=== PATIENT | male | born 1960 | race Caucasian/White ===

== ENCOUNTER → 2018-05-15 16:33 | Outpatient (CLI) | payer OTHER, SELFPAY ==
[2018-05-15 17:49] LABS: AST(SGOT) 15 U/L (15-37); Alanine Aminotransfer ALT/SGPT 43 U/L (16-61); Albumin, Serum 4.1 g/dL (3.2-5.0); Alkaline Phosphatase 61 U/L (45-117); Anion Gap 12 (5-15); BUN 24 mg/dL (7-18); BUN/Creat Ratio 23.8 RATIO (10-20); Bilirubin, Direct 0.08 mg/dL (0.00-0.30); Chloride 106 mmol/L (98-107); Cholesterol 129 mg/dL (200); Creatinine, Serum 1.01 mg/dL (0.70-1.30); EST Glomerular Filtration Rate 81 mL/min (>60); Est Glom Filt Rate - Afr Amer 98 mL/min (>60); Globulin 3.8 g/dL (2.2-4.2); Glucose 161 mg/dL (74-106); Hemoglobin A1c 6.8 % (4.2-6.3); High Density Lipoprotein 24 mg/dL; Potassium 4.2 mmol/L (3.5-5.1); Protein, Total 7.9 g/dL (6.4-8.2); Sodium Level 143 mmol/L (136-145); Triglycerides 418 mg/dL
[2018-05-15 18:02] LABS: Microalbumin:Creatinine Ratio 88.4 mg/g CRE (<30 mg/g CRE)
== END ==
PROVIDERS: Family Provider Family Medicine; PCP Family Medicine; Visit Provider Family Medicine
DX: E11.9 Type 2 diabetes mellitus without complications (principal)
CPT/HCPCS: 36415; 80048; 80061; 80076; 82043; 82570; 83036

== ENCOUNTER → 2019-01-06 | Outpatient (CLI) | payer OTHER, SELFPAY ==
[2019-01-06 08:31] LABS: AST(SGOT) 21 U/L (15-37); Alanine Aminotransfer ALT/SGPT 37 U/L (16-61); Albumin, Serum 4.2 g/dL (3.2-5.0); Alkaline Phosphatase 54 U/L (45-117); Anion Gap 5 (5-15); BUN 19 mg/dL (7-18); BUN/Creat Ratio 20.1 RATIO (10-20); Bilirubin, Direct 0.06 mg/dL (0.00-0.30); Calcium,Total 9.1 mg/dL (8.5-10.1); Chloride 109 mmol/L (98-107); Cholesterol 126 mg/dL (200); Creatinine, Serum 0.94 mg/dL (0.70-1.30); EST Glomerular Filtration Rate 88 mL/min (>60); Est Glom Filt Rate - Afr Amer 106 mL/min (>60); Globulin 3.6 g/dL (2.2-4.2); Glucose 173 mg/dL (74-106); High Density Lipoprotein 28 mg/dL; Potassium 4.4 mmol/L (3.5-5.1); Protein, Total 7.8 g/dL (6.4-8.2); Sodium Level 139 mmol/L (136-145); Triglycerides 233 mg/dL; Very Low Density Lipoprotein 47 mg/dL (5-40)
== END | disposition home or self-care (01) ==
PROVIDERS: Family Provider Family Medicine; PCP Family Medicine; Referring Provider Family Medicine; Visit Provider Family Medicine
DX: E11.9 Type 2 diabetes mellitus without complications (principal)
CPT/HCPCS: 36415; 80048; 80061; 80076

== ENCOUNTER → 2019-12-21 | Outpatient (CLI) | payer BC, SELFPAY ==
[2019-12-21 10:11] LABS: Glucose 255 mg/dL (74-106)
[2019-12-21 10:39] LABS: Hemoglobin A1c 9.9 % (4.2-6.3)
== END | disposition home or self-care (01) ==
PROVIDERS: PCP Family Medicine; Referring Provider Family Medicine; Visit Provider Family Medicine
DX: E11.9 Type 2 diabetes mellitus without complications (principal)
CPT/HCPCS: 36415; 82947; 83036

== ENCOUNTER → 2020-04-05 | Outpatient (CLI) | payer BC, SELFPAY ==
[2017-08-05 11:57] VITALS: BMI 30.4
[2020-04-05 09:02] LABS: Anion Gap 7 (5-15); BUN 25 mg/dL (7-18); BUN/Creat Ratio 26.6 RATIO (10-20); Chloride 104 mmol/L (98-107); Cholesterol 146 mg/dL (200); Creatinine, Serum 0.94 mg/dL (0.70-1.30); EST Glomerular Filtration Rate 87 mL/min (>60); Est Glom Filt Rate - Afr Amer 106 mL/min (>60); Glucose 261 mg/dL (74-106); High Density Lipoprotein 22 mg/dL; Sodium Level 138 mmol/L (136-145); Triglycerides 270 mg/dL; Very Low Density Lipoprotein 54 mg/dL (5-40)
== END | disposition home or self-care (01) ==
LOC: LAB 07:48
PROVIDERS: PCP Family Medicine; Referring Provider Family Medicine; Visit Provider Family Medicine
DX: E11.9 Type 2 diabetes mellitus without complications (principal)
CPT/HCPCS: 36415; 80048; 80061

== ENCOUNTER → 2022-07-27 | Outpatient (CLI) | payer BC, SELFPAY ==
[2022-07-27 10:27] LABS: Anion Gap 5 (5-15); BUN 20 mg/dL (7-18); BUN/Creat Ratio 27.1 RATIO (10-20); Calcium,Total 9.2 mg/dL (8.5-10.1); Chloride 108 mmol/L (98-107); Cholesterol 94 mg/dL (200); Creatinine, Serum 0.74 mg/dL (0.70-1.30); EST Glomerular Filtration Rate 115 mL/min (>60); Est Glom Filt Rate - Afr Amer 139 mL/min (>60); Glucose 112 mg/dL (74-106); High Density Lipoprotein 31 mg/dL; PSA,Total - Annual Screen 0.75 ng/mL (0.00-4.00); Potassium 4.2 mmol/L (3.5-5.1); Sodium Level 138 mmol/L (136-145); Triglycerides 108 mg/dL; Very Low Density Lipoprotein 22 mg/dL (5-40)
== END | disposition home or self-care (01) ==
LOC: MFPLAB 08:22
PROVIDERS: PCP Family Medicine; Referring Provider Family Medicine; Visit Provider Family Medicine
DX: I10 Essential (primary) hypertension (principal); N40.0 Benign prostatic hyperplasia without lower urinary tract symptoms
CPT/HCPCS: 36415; 80048; 80061; 84153; G0103

== ENCOUNTER 2023-03-15 15:52 | Emergency (ER) | payer BC, SELFPAY ==
[2023-03-15 15:53] VITALS: BP 197/112; PULSE 63; RESP 14; TEMP 36.1; O2SAT 99; BMI 28.3
--- NOTE | 2023-03-15 16:05 | ED.VIS.FALL ---
HPI HPI - Fall History of Present Illness Chief Complaint: Fall Informant: patient Narrative Narrative: Patient presents after fall from ladder. Patient states he was about 3 steps up on a ladder. It was a stepladder. He leaned over to the side to try to reach a little farther. This caused the ladder to twist. When the ladder twisted he fell. He hit his head on a metal cart that was nearby. He has a laceration above the right eye and then a contusion slightly above that. He did not lose consciousness. He is not on blood thinners including not taking daily aspirin. He does have a headache which is unknown typical for him. But no numbness tingling weakness. No balance or speech problems. No visual complaints. He has an abrasion on his left elbow but states it does not hurt at all. In fact nothing hurts other than his head. No neck pain either. Last tetanus was unknown. Blood pressure is noted to be up. But he has no symptoms related to this. He also has not yet taken his blood pressure meds today. PFSH PFSH Home Medications lisinopril 10 mg tablet 10 mg PO DAILY 11/19/16 [History Last Taken 08/05/17 08:00] metformin 500 mg tablet 500 mg PO DAILY 11/19/16 [History Last Taken Unknown] atorvastatin 20 mg tablet 20 mg PO QHS 07/28/17 [History Last Taken Unknown] meloxicam 7.5 mg tablet 7.5 mg PO BID 07/28/17 [History Last Taken Unknown] hydrocodone-acetaminophen 5-325mg 5mg-325mg 1 - 2 tab PO Q4H PRN PRN Pain 08/04/17 [History Last Taken 08/05/17 08:00] hydrocodone-acetaminophen 5-325mg 5mg-325mg ([place]) 1 ea PO Q4H PRN PRN Pain #14 tabs 08/05/17 [Rx Last Taken Unknown] hydrocodone-acetaminophen 5-325mg 5mg-325mg ([place]) 1 ea PO Q4H PRN PRN Pain #14 tabs 08/05/17 [Rx Last Taken Unknown] ketorolac 10 mg tablet 10 mg PO Q4H PRN PRN Pain ##10 08/05/17 [Rx Last Taken Unknown] ketorolac 10 mg tablet 10 mg PO Q6H PRN Pain ##10 08/05/17 [Rx Last Taken Unknown] Allergy/AdvReac Type Severity Reaction Status Date / Time No Known Allergies Allergy Verified 03/15/23 15:53 Social History Smoking Status: Current every day smoker tobacco type: cigarettes ROS ROS ED Constitutional Constitutional ED: Denies fever(s) Eyes Eyes: Denies blurry vision, change in vision or diplopia ENT ENT ED: Reports other Details: Laceration contusion right forehead ; Denies rhinorrhea Cardiovascular Cardiovascular: Denies chest pain or palpitations Respiratory/Chest Respiratory/Chest: Denies cough or dyspnea Gastrointestinal Gastrointestinal: Denies nausea or vomiting Genitourinary Genitourinary ED: Denies hematuria Musculoskeletal Musculoskeletal: Denies arthralgias, back pain, myalgias or neck pain Integumentary Reports Abrasions Neurologic Neurologic: Reports headache(s); Denies paresthesias or weakness Hematologic/Lymphatic Hematologic/Lymphatic: Denies easy bleeding or easy bruising Allergic/Immunologic Allergic/Immunologic ED: Denies urticaria EXAM Physical Exam Narrative Exam Narrative: Patient is awake and alert in no acute distress. I watched him walk back from triage to the room with a stable normal gait. HEENT does show contusion in the right upper forehead. He has a laceration about 4.5 cm in length that is very angular above the right eyebrow. It slices and add a sharp angle to the skin rather than 90 degrees off so there is somewhat of a flap. It is not actually bleeding. No abnormal finding of tympanic membranes. No facial tenderness. Passes the tongue blade test on both sides. Eyes show normal range of motion with no limitation of gaze. No subconjunctival hemorrhage. Pupils are normal. Neck is supple has free range of motion without pain and no pain with palpation. Lungs are clear bilaterally. Saturations are normal at 99% on room air showing no hypoxia. Heart is regular. No murmur gallop or rub. Abdomen soft nontender Extremities show some abrasion near the left elbow but no pain with range of motion or palpation. No other areas of tenderness on upper or lower extremities or clavicles. Neurologically he is awake alert appropriate gives a clear constant history. No focal deficit is found. Const Vital Signs: 03/15/23 15:53 03/15/23 16:04 Temperature 97 F L Temperature Source Temporal Pulse Rate 63 Respiratory Rate 14 Respiratory Depth Normal Respiratory Pattern Normal Blood Pressure 197/112 H Blood Pressure Mean 140 Pulse Ox 99 Oxygen Delivery Method Room Air Room Air MDM MDM MDM Narrative Medical decision making narrative: This patient did have a fall a significant impact on a rather sharp object. He is pretty sure he did not lose consciousness. He he and his are both pretty sure he is not on blood thinners. But he does have a headache that is not typical for him. For this reason we did do CT scan of his head. My independent interpretation the patient's CT of the head without contrast shows no sign of fracture or acute intracranial injury. Final reading is pending. Final reading the CT shows no acute process Procedure note: Suture laceration: LET was applied to the wound and let it rest. The area around the wound was then injected with a total of 3 cc of 1% lidocaine locally. The area was copiously scrubbed and cleaned. 1 clot was removed between the wound edges and scrubbed. I examined the extent of the wound. We closed this with 6-0 Ethilon sutures. A total of 9 were used. He tolerated this well. It was closed with good cosmesis and hemostasis. We discussed follow-up removal and signs of infection. Radiography Diagnostic Testing: Clinical Impression(s) from Imaging Studies Brain CT 03/15/23 16:10 IMPRESSION: Normal unenhanced CT scan of the brain. Electronically Signed: Tori Larson MD at 16:45 EDT Reading Location ID and State: [id number] / Tel , Service support , Discharge Plan Triage Chief Complaint: Fall ED Provider: Ryan Denny Dx/Rx/DC Orders Clinical Impression: Fall from ladder, Forehead laceration, Closed head injury, Contusion of forehead, Elevated blood pressure reading, Sutured skin wound Instructions: ED Head Injury (Adult), ED Laceration: All Closures Prescriptions: No Action metformin 500 MG tablet 500 mg PO DAILY Label Comments: lisinopril 10 MG tablet 10 mg PO DAILY Label Comments: atorvastatin 20 MG tablet 20 mg PO QHS meloxicam 7.5 MG tablet 7.5 mg PO BID hydrocodone-acetaminophen 1 TABLET tablet 1 - 2 tab PO Q4H PRN PRN (Reason: Pain) hydrocodone-acetaminophen [[place]] 1 EACH tablet 1 ea PO Q4H PRN PRN (Reason: Pain) Qty: 14 0RF ketorolac 10 MG tablet 10 mg PO Q6H PRN (Reason: Pain) Qty: 10 0RF hydrocodone-acetaminophen [[place]] 1 EACH tablet 1 ea PO Q4H PRN PRN (Reason: Pain) Qty: 14 0RF ketorolac 10 MG tablet 10 mg PO Q4H PRN PRN (Reason: Pain) Qty: 10 10RF Primary Care Provider: Kyle Goins Referrals: Kyle Goins MD [Primary Care Provider] - 5 Days for suture removal Activity Restrictions/Additional Instructions: Suture removal in 5-7 days. Disposition Disposition: Home, Self Care
--- NOTE | 2023-03-15 16:10 | CT_ITS ---
STUDY: CT BRAIN WITHOUT CONTRAST REASON FOR EXAM: Male, 62 years old. Trauma RADIATION DOSAGE (If Supplied By Facility): CTDIvol = ( 44.99 ) mGy, DLP = ( 829.85 ) mGycm TECHNIQUE: Transaxial CT imaging of the brain was performed without administration of intravenous contrast material. Individualized dose optimization techniques were used for this CT. COMPARISON: No relevant priors. FINDINGS: Normal soft tissue structures. Normal calvarium. Normal size ventricles and extra-axial spaces for the patient''s age. Normal white matter tracts of the cerebral hemispheres. Normal basal ganglia and thalami. Normal brainstem. Normal cerebellum. There is no intracranial hemorrhage. There are no findings of an acute ischemic infarction. Normal visualized paranasal sinuses. CT/Brain/Head without Contrast IMPRESSION: Normal unenhanced CT scan of the brain. Electronically Signed: Tori Larson MD at 16:45 EDT Reading Location ID and State: [id number] / Tel , Service support ,
[2023-03-15] MEDS: Lidocaine/Epi/Tetracaine 50 ML 1 APPLIC TOPICAL (16:28)
[2023-03-15] MEDS: Diphth,Pertuss(Acell),Tet Vac 0.5 ML Vial IM (16:40)
--- NOTE | 2023-03-15 16:49 | ED.RN ---
Face cleaned and medicated per order.
[2023-03-15 17:45] VITALS: BP 178/98; PULSE 78; RESP 16; O2SAT 99
[2023-03-15] MEDS: Lidocaine 1% /Epi 1:100 (20ml) 20 ML Vial INFILT (17:46)
== END 2023-03-15 17:48 | disposition home or self-care (01) ==
PROVIDERS: Emergency Provider Emergency Medicine; PCP Family Medicine; Visit Provider Emergency Medicine
DX: S01.81XA Laceration without foreign body of other part of head, initial encounter (principal); S50.312A Abrasion of left elbow, initial encounter; W11.XXXA Fall on and from ladder, initial encounter; F17.210 Nicotine dependence, cigarettes, uncomplicated; R03.0 Elevated blood-pressure reading, without diagnosis of hypertension; Z23 Encounter for immunization
CPT/HCPCS: 12013; 70450; 90471; 90715; 99283

== ENCOUNTER → 2023-12-26 | Outpatient (CLI) | payer BC, SELFPAY ==
[2023-12-26 11:06] LABS: Anion Gap 6 (5-15); BUN 21 mg/dL (7-18); BUN/Creat Ratio 21.8 RATIO (10-20); Calcium,Total 9.2 mg/dL (8.5-10.1); Chloride 102 mmol/L (98-107); Cholesterol 119 mg/dL (200); Creatinine, Serum 0.96 mg/dL (0.70-1.30); EST Glomerular Filtration Rate 84 mL/min (>60); Est Glom Filt Rate - Afr Amer 102 mL/min (>60); Glucose 178 mg/dL (74-106); High Density Lipoprotein 26 mg/dL; PSA,Total- Diagnostic 0.74 ng/mL (0.0-4.0); Potassium 4.1 mmol/L (3.5-5.1); Sodium Level 135 mmol/L (136-145); Triglycerides 161 mg/dL; Very Low Density Lipoprotein 32 mg/dL (5-40)
== END | disposition home or self-care (01) ==
LOC: MFPLAB 08:01
PROVIDERS: PCP Family Medicine; Visit Provider Family Medicine
DX: E11.9 Type 2 diabetes mellitus without complications (principal); R35.0 Frequency of micturition
CPT/HCPCS: 36415; 80048; 80061; 84153

== ENCOUNTER 2024-11-02 09:31 | Emergency (ER) | payer OTHER, SELFPAY ==
[2024-11-02] VITALS (7 sets, daily range): BP systolic 136–206; BP diastolic 108–115; PULSE 69–73; RESP 16–17; TEMP 36.8; O2SAT 95–97; BMI 29.4
--- NOTE | 2024-11-02 09:49 | EKG12_ITS ---
Test Reason : CP Blood Pressure : */* mmHG Vent. Rate : 73 BPM Atrial Rate : 73 BPM P-R Int : 154 ms QRS Dur : 90 ms QT Int : 398 ms P-R-T Axes : 80 79 74 degrees QTcB Int : 438 ms Normal sinus rhythm Possible Left atrial enlargement Nonspecific ST abnormality Abnormal ECG Confirmed by TITO MOSER, YEISON ([id number]), editor sound YASMEEN TREADWELL ([id number]) on 11/05/2024 8:14:09 AM Referred By: Confirmed By: YEISON FRANCIS MD
--- NOTE | 2024-11-02 09:53 | ED.VIS.CHEST ---
HPI History of Present Illness Chief Complaint: Chest Pain Informant: patient Narrative Narrative: Patient is a 63-year-old male with history of tobacco use, diabetes, hypertension and hyperlipidemia presenting with chest pain. Patient states he has had an aching chest pain on the right anterior chest and sternum for the past 3 days. States he goes to bed with it wakes up with it. Denies any radiation. Denies any alleviating factors but notes it is worse when he coughs. Notes over the past month he was dealing with a URI and then subsequently had a chest x-ray and was diagnosed with pneumonia. He states he was treated with antibiotics and that cleared up however over the past few days he has been having worsening coughing and sneezing. Initially went to urgent care but his blood pressures were elevated (low 200s to 180s systolic). He denies any fevers. Does feel that he has been wheezing. Does not have any breathing treatments at home. States has not been on any steroids antibiotics recently. Denies any swelling of his legs. Denies a history of DVT or PE. Did not take anything for pain. Came in for further evaluation. [facility] Medical History Hypertension Diabetes Home Medications ?Medication ?Instructions ?Recorded ?Last Taken ?Type lisinopril 10 mg tablet 10 mg PO DAILY 11/19/16 08/05/17 08:00 History metformin 500 mg tablet 500 mg PO DAILY 11/19/16 Unknown History atorvastatin 20 mg tablet 20 mg PO QHS 07/28/17 Unknown History meloxicam 7.5 mg tablet 7.5 mg PO BID 07/28/17 Unknown History hydrocodone-acetaminophen 5-325mg 1 - 2 tab PO Q4H PRN PRN Pain 08/04/17 08/05/17 08:00 History 5mg-325mg hydrocodone-acetaminophen 5-325mg 1 ea PO Q4H PRN PRN Pain #14 tabs 08/05/17 Unknown Rx 5mg-325mg ([place]) hydrocodone-acetaminophen 5-325mg 1 ea PO Q4H PRN PRN Pain #14 tabs 08/05/17 Unknown Rx 5mg-325mg ([place]) ketorolac 10 mg tablet 10 mg PO Q4H PRN PRN Pain ##10 08/05/17 Unknown Rx ketorolac 10 mg tablet 10 mg PO Q6H PRN Pain ##10 08/05/17 Unknown Rx albuterol sulfate 90 mcg/actuation 1 - 2 puff inhalation Q4H PRN PRN 11/02/24 Unknown Rx aerosol inhaler (Ventolin HFA) Wheezing #1 inh amoxicillin 875 mg-potassium 1 tab PO Q12H #14 tabs 11/02/24 Unknown Rx clavulanate 125 mg tablet azithromycin 250 mg tablet 250 mg PO DAILY #4 TABLETS 11/02/24 Unknown Rx prednisone 20 mg tablet 40 mg (2 x 20 mg) PO DAILY #8 11/02/24 Unknown Rx TABLETS Allergy/AdvReac Type Severity Reaction Status Date / Time No Known Allergies Allergy Verified 11/02/24 09:49 Social History Smoking Status: Current every day smoker tobacco type: cigarettes ROS ROS ED Constitutional Constitutional ED: Denies chills or fever(s) ENT ENT ED: Denies ear pain, rhinorrhea or sore throat Cardiovascular Cardiovascular: Reports chest pain; Denies palpitations Respiratory/Chest Respiratory/Chest: Reports cough; Denies dyspnea or sputum Gastrointestinal Gastrointestinal: Denies abdominal pain, nausea or vomiting Musculoskeletal Musculoskeletal: Denies arthralgias or myalgias Integumentary Denies rash Neurologic Neurologic: Denies weakness Hematologic/Lymphatic Hematologic/Lymphatic: Denies easy bleeding or easy bruising EXAM Physical Exam Const Vital Signs: 11/02/24 09:31 11/02/24 09:44 11/02/24 09:44 Temperature 98.3 F Temperature Source Oral Pulse Rate 72 73 Respiratory Rate 16 16 Respiratory Effort Normal Respiratory Pattern Blood Pressure 187/112 H 206/108 H Blood Pressure Mean 137 140 Pulse Ox 97 95 Oxygen Delivery Method Room Air Room Air 11/02/24 09:49 11/02/24 10:03 11/02/24 10:03 Temperature Temperature Source Pulse Rate 69 Respiratory Rate 16 Respiratory Effort Respiratory Pattern Normal Blood Pressure Blood Pressure Mean Pulse Ox 96 97 Oxygen Delivery Method Room Air Room Air 11/02/24 11:31 11/02/24 11:44 Temperature 98.2 F Temperature Source Pulse Rate 72 70 Respiratory Rate 17 17 Respiratory Effort Respiratory Pattern Blood Pressure 136/115 H 136/115 H Blood Pressure Mean 122 122 Pulse Ox 96 96 Oxygen Delivery Method Positive well nourished and well developed General Appearance ED: well developed and NAD HEENT Reports TM's clear and moist mucous membranes Negative for normocephalic or atraumatic Tympanic Membrane ED: Yes TM's clear Eyes PERRL Neck supple Chest Wall inspection of chest normal and palpation of chest normal Chest Narrative: No chest wall crepitus Chest: Negative for tenderness Resp normal respiratory effort Resp Narrative: Coarse breath sounds with some scattered rhonchi noted at the left base. The anterior lung calvert are send expiratory wheezing. Effort and Inspection: Negative for respiratory distress Auscultation: wheezes expiratory wheezes Cardio regular rate, regular rhythm and no murmurs Peripheral Pulses: pulses 2+ throughout Extremity normal to inspection General Extremety ED: Negative for edema General Extremity: Negative for edema Neuro oriented x3 Sensorium / Orientation: awake and alert Motor Exam: Negative for general weakness Psych mental status grossly normal Skin no rashes or lesions noted and no wounds MDM MDM MDM Narrative Medical decision making narrative: Patient is evaluated for right-sided chest pain as well as recurrent/worsening cough. Differential includes ACS, pneumonia, pleurisy, pulmonary emboli, pleural effusion, pneumothorax. Chest pain has been persistent for the past 3 days I do not think delta high-sensitivity troponin is needed and initial troponin is 6 which I feel effectively rules out ACS. He is low risk per Wells criteria and D-dimer is negative. Suspicion for PE. Chest x-ray viewed by myself as well as radiology which does show a right upper lobe pneumonia versus atelectasis. Given this is where his pain is a suspect this is a pneumonia. He overall is well-appearing but will be covered with Augmentin and azithromycin (given first dose in the emergency room). He does have some wheezing on exam and is given a DuoNeb with some improvement of his pain. Will be started on a short course of steroids as well as albuterol inhaler. Patient is hypertensive the emergency room given 1 dose of hydralazine with improvement of his blood pressure. He has no hypoxia with ambulation. Encouraged follow-up with his primary care doctor. Given return precautions. Discharged home in stable condition. Lab Data Attestation: I reviewed the patient's lab results. Labs: Laboratory Results - last 24 hr 11/02/24 09:55 WBC 6.9 RBC 5.55 Hgb 15.5 Hct 45.4 MCV 81.8 MCH 27.9 MCHC 34.1 RDW Std Deviation 38.5 RDW Coeff of [place] 13.0 Plt Count 191 MPV 10.7 Immature Gran % (Auto) 0.700 Neut % (Auto) 65.4 Lymph % (Auto) 25.0 [place] % (Auto) 6.9 Eos % (Auto) 1.3 Baso % (Auto) 0.7 Absolute Neuts (auto) 4.5 Absolute Lymphs (auto) 1.71 Nucleated RBC % 0 D-Dimer Quant (PE/DVT) < 0.27 L Sodium 137 Potassium 4.3 Chloride 102 Carbon Dioxide 29.0 Anion Gap 5 BUN 13 Creatinine 0.98 Estim Creat Clear Calc 95.02 Est GFR (MDRD) Af Amer 99 Est GFR (MDRD) Non-Af 82 BUN/Creatinine Ratio 13.3 Glucose 270 H Calcium 9.8 Troponin I High Sens 6 Radiography Chest X-Ray - ED: 2 View, Read by ED Physician and Right Infiltrate (upper ) Diagnostic Testing: Clinical Impression(s) from Imaging Studies Chest X-Ray 11/02/24 10:35 IMPRESSION: Right upper lobe pneumonia or atelectasis. Reading Location: [facility] Rhythm Strip Rhythm Strip: Sinus Rhythm Rate: 73 Ectopy: None EKG Initial EKG: Attestation: I personally reviewed and interpreted this EKG as follows: Interpretation: Sinus Rhythm Comments: Normal sinus rhythm at a rate of 73 bpm Normal axis Normal intervals Normal ST segments Discharge Plan Triage Chief Complaint: Chest Pain ED Provider: Jackie Khan Dx/Rx/DC Orders Clinical Impression: Benign hypertension, Pneumonia Instructions: ED Chest Pain, Noncardiac, ED Pneumonia (Adult) Prescriptions: New amoxicillin-pot clavulanate 875-125 mg tablet 1 tab PO Q12H Qty: 14 0RF azithromycin 250 mg tablet 250 mg PO DAILY Qty: 4 0RF prednisone 20 mg tablet 40 mg PO DAILY Qty: 8 0RF albuterol sulfate [Ventolin HFA] 90 mcg/actuation HFA aerosol inhaler 1 - 2 puff inhalation Q4H PRN PRN (Reason: Wheezing) Qty: 1 0RF No Action metformin 500 MG tablet 500 mg PO DAILY Patient Comments: lisinopril 10 MG tablet 10 mg PO DAILY Patient Comments: atorvastatin 20 MG tablet 20 mg PO QHS meloxicam 7.5 MG tablet 7.5 mg PO BID hydrocodone-acetaminophen 1 TABLET tablet 1 - 2 tab PO Q4H PRN PRN (Reason: Pain) hydrocodone-acetaminophen [[place]] 1 EACH tablet 1 ea PO Q4H PRN PRN (Reason: Pain) Qty: 14 0RF ketorolac 10 MG tablet 10 mg PO Q6H PRN (Reason: Pain) Qty: 10 0RF hydrocodone-acetaminophen [[place]] 1 EACH tablet 1 ea PO Q4H PRN PRN (Reason: Pain) Qty: 14 0RF ketorolac 10 MG tablet 10 mg PO Q4H PRN PRN (Reason: Pain) Qty: 10 10RF Primary Care Provider: Kyle Goins Referrals: Kyle Gions MD [Primary Care Provider] - Activity Restrictions/Additional Instructions: You have placed on 2 antibiotics to better cover for both typical and atypical causes of pneumonia. Patient drink plenty of fluids. I suspect the pain is associate with a pneumonia. You may take [id number] Tylenol or ibuprofen. You have also been given steroids and an inhaler prescription as you have wheezing and I suspect a component of bronchitis as well. Please follow-up with your primary care doctor. Continue taking your regular blood pressure medications as blood pressure was high today. Return if you have progression or worsening of your symptoms Print Language: Georgian Disposition Disposition: Home, Self Care
[2024-11-02] MEDS: Aspirin 81 MG TAB.CHEW 324 MG PO (09:55)
[2024-11-02] MEDS: Ipratropium/Albuterol Sulfate 3 ML AMPUL.NEB INHALATION (10:00)
[2024-11-02 10:01] LABS: Absolute Lymphocyte Count 1.71 X10^3/uL (0.83-4.51); Absolute Neutrophil Count 4.5 X10^3/uL (2.0-7.7); Basophil# 0.05 X10^3/uL; Basophil% 0.7 % (0-1); Eosinophil# 0.09 X10^3/uL; Eosinophils% 1.3 % (0-5); Hematocrit 45.4 % (40-54); Hemoglobin 15.5 g/dL (13.0-16.5); Lymphocyte # 1.71 X10^3/ul (0.83-4.51); Mean Corp Hgb Conc 34.1 g/dL (32-36); Mean Corpuscular Hgb 27.9 pg (27.0-32.0); Mean Corpuscular Volume 81.8 fL (80-94); Mean Platelet Vol. 10.7 fl (6.2-12.0); Monocyte# 0.47 X10^3/uL; Monocyte% 6.9 % (0-10); NRBC Flagged by Analyzer 0 % (0-5); Neutrophil # 4.48 X10^3/uL (2.7-7.7); Neutrophil % 65.4 % (47-70); Platelet Count 191 K/mm3 (150-450); RBC Distribution Width SD 38.5 fl (35.1-43.9); Red Blood Count 5.55 M/mm3 (4.6-6.2); White Blood Count 6.9 K/mm3 (4.4-11.0)
[2024-11-02 10:19] LABS: Anion Gap 5 (5-15); BUN 13 mg/dL (7-18); BUN/Creat Ratio 13.3 RATIO (10-20); Calcium,Total 9.8 mg/dL (8.5-10.1); Chloride 102 mmol/L (98-107); Creatinine, Serum 0.98 mg/dL (0.70-1.30); EST Glomerular Filtration Rate 82 mL/min (>60); Est Glom Filt Rate - Afr Amer 99 mL/min (>60); Estimated Creatinine Clearance 95.02 ml/min; Glucose 270 mg/dL (74-106); Potassium 4.3 mmol/L (3.5-5.1); Sodium Level 137 mmol/L (136-145); Troponin-I HS 6 pg/mL (3.0-78.0)
[2024-11-02 10:20] LABS: D-Dimer Quantitative (DVT/PE) < 0.27 FEU/ug/m (0.27-0.49)
--- NOTE | 2024-11-02 10:35 | RAD_ITS ---
EXAM: XR Chest, 2 Views CLINICAL INDICATION: TECHNIQUE: Frontal and lateral views of the chest. COMPARISON: No relevant prior studies available. FINDINGS: LUNGS AND PLEURAL SPACES: Right upper lobe pneumonia or atelectasis. No pneumothorax. HEART: Unremarkable. No cardiomegaly. MEDIASTINUM: Unremarkable. Normal mediastinal contour. BONES/JOINTS: Unremarkable. No acute fracture. RAD/Chest PA and Lateral IMPRESSION: Right upper lobe pneumonia or atelectasis. Reading Location[facility]
[2024-11-02] MEDS: hydrALAZINE 20 MG/ML Vial IV (10:37)
[2024-11-02] MEDS: predniSONE 20 MG Tablet 60 MG PO (11:52)
[2024-11-02] MEDS: Amox/Clavulanate 875 MG Tablet PO (11:52)
[2024-11-02] MEDS: Azithromycin 250 MG Tablet 500 MG PO (11:52)
== END 2024-11-02 12:05 | disposition home or self-care (01) ==
PROVIDERS: Emergency Provider Emergency Medicine; PCP Family Medicine; Visit Provider Emergency Medicine
DX: J18.9 Pneumonia, unspecified organism (principal); E11.9 Type 2 diabetes mellitus without complications; I10 Essential (primary) hypertension; E78.5 Hyperlipidemia, unspecified; F17.210 Nicotine dependence, cigarettes, uncomplicated
CPT/HCPCS: 71046; 80048; 84484; 85025; 85379; 93005; 94640; 96374; 99284; A4216

== ENCOUNTER → 2025-08-29 | Outpatient (CLI) | payer OTHER, SELFPAY ==
--- NOTE | 2025-08-29 09:29 | RAD_ITS ---
EXAM: XR Chest, 1 View CLINICAL INDICATION: COUGH TECHNIQUE: Frontal view of the chest. COMPARISON: No relevant prior studies available. FINDINGS: LUNGS AND PLEURAL SPACES: Consolidation of the right upper lobe, likely pneumonia. No pneumothorax. HEART: Unremarkable. No cardiomegaly. MEDIASTINUM: Unremarkable. Normal mediastinal contour. BONES/JOINTS: Unremarkable. No acute fracture. RAD/Chest PA and Lateral IMPRESSION: Consolidation of the right upper lobe, likely pneumonia. Reading [facility]
== END | disposition home or self-care (01) ==
LOC: MTRAD 09:29
PROVIDERS: PCP Family Medicine; Referring Provider Nurse Practitioner Family; Visit Provider Nurse Practitioner Family
DX: J44.1 Chronic obstructive pulmonary disease with (acute) exacerbation (principal)
CPT/HCPCS: 71046